=== PATIENT | female | born 1975 | race Caucasian/White ===

== ENCOUNTER 2016-11-27 10:40 | Emergency (ER) | payer OTHER ==
[~2016-11-27] VITALS: Ht 172.7 cm; Wt 79.0 kg
[~2016-11-27 10:40] MED LIST: ANTIBIOTICS; VICODIN
[2016-11-27 10:59] VITALS: Ht 172.7 cm; Wt 79.0 kg
[2016-11-27] MEDS ORDERED: ONDANSETRON 4 MG INJ IV STA (11:30)
[2016-11-27] MEDS ORDERED: SOD CHLORIDE 0.9% 1,000 ML IV STA (11:30)
[2016-11-27] MEDS ORDERED: KETOROLAC 30 MG INJ IV STA (11:30)
[2016-11-27 12:00] LABS: ADD UMIC YES; URINE BILIRUBIN (Dip) NEGATIVE (NEGATIVE); URINE BLOOD (Dip) 3+ (NEGATIVE); URINE COLOR LT. YELLOW (YELLOW); URINE GLUCOSE (Dip) NEGATIVE (NEGATIVE); URINE KETONES (Dip) NEGATIVE (NEGATIVE); URINE LEUKOCYTE ESTERASE (Dip) TRACE (NEGATIVE); URINE NITRITE (Dip) NEGATIVE (NEGATIVE); URINE TOTAL PROTEIN (Dip) 2+ (NEGATIVE); URINE UROBILINOGEN (Dip) 0.2 E.U./dL (0.1-1.0)
[2016-11-27 12:16] LABS: BACTERIA,URINE FEW; SQUAMOUS EPITHELIAL CELL,UR MODERATE
[2016-11-27 12:29] LABS: ADD SCAN DIFF NO
[2016-11-27 12:40] LABS: ALBUMIN 4.2 g/dl (3.3-4.9); POTASSIUM 3.8 mmol/L (3.5-5.1)
[2016-11-27 12:42] LABS: BILIRUBIN,INDIRECT 0.3 mg/dl (0-1.1); BILIRUBIN,TOTAL 0.3 mg/dl (0.2-1.3); CREATININE 0.72 mg/dl (0.44-1.00)
[2016-11-27 12:43] LABS: ALBUMIN/GLOBULIN RATIO 1.44; TOTAL PROTEIN 7.1 g/dl (6.1-8.1)
[2016-11-27 12:54] LABS: BASOPHILS % 0.6 % (0.0-2.0); EOSINOPHILS # 0.1 10^3/ul (0.0-0.5); EOSINOPHILS % 1.9 % (0.0-7.0); HEMATOCRIT 39.9 % (37.0-47.0); HEMOGLOBIN 13.3 g/dl (12.0-16.0); LYMPHOCYTES % 29.3 % (15.0-51.0); MEAN CORPUSCULAR HEMOGLOBIN 30.2 pg (29.0-33.0); MEAN CORPUSCULAR HGB CONC 33.3 g/dl (32.0-37.0); MEAN CORPUSCULAR VOLUME 90.7 fl (82.0-101.0); MEAN PLATELET VOLUME 11.1 fl (7.4-10.4); MONOCYTE # 0.4 10^3/ul (0.3-0.9); MONOCYTES % 5.5 % (0.0-11.0); NEUTROPHIL # 4.3 10^3/ul (1.6-7.5); NEUTROPHILS % 62.4 % (39.0-77.0); PLATELET COUNT 251 10^3/UL (140-415); RED CELL DISTRIBUTION WIDTH 12.5 % (11.5-14.5); WHITE BLOOD COUNT 6.9 10^3/ul (4.8-10.8)
--- NOTE | 2016-11-27 13:38 | ERD ---
ER Documentation Chief Complaint Date/Time DATE: 11/27/16 TIME: 13:38 Chief Complaint Pt with dysuria and B flank pain x 3 days, worst sice last night. HPI 41-year-old female presenting with complaints of bilateral flank pain for about 3 days. She has had associated dysuria but no hematuria. She has felt nauseated without vomiting. She states the pain is worse on the left than the right. Described as aching, sometimes stabbing, constant, nonradiating, 7 out of 10. Movement makes it worse, laying down makes it feel better. She has had some associated constipation for the past 2 days. She has not been taking anything for the pain. No vaginal bleeding or discharge. ROS All systems reviewed and are negative except as per history of present illness. Medications Home Meds Reported Medications [Antibiotics] No Conflict Check 04/12/10 [Vicodin] No Conflict Check 04/12/10 [None] No Conflict Check 04/10/10 Allergies Allergies: Coded Allergies: No Known Drug Allergies (Verified Allergy, Mild, 04/12/10) PMhx/Soc History of Surgery: Yes (tubal ligation, 03/2006) Anesthesia Reaction: No Hx Neurological Disorder: No Hx Respiratory Disorders: No Hx Cardiac Disorders: No Hx Psychiatric Problems: Yes (HX OF DEPRESSION AND ANXIETY) Hx Miscellaneous Medical Probl: No Hx Alcohol Use: Yes (occasional) Hx Substance Use: No Hx Tobacco Use: Yes Smoking Status: Current some day smoker FmHx Family History: No diabetes Physical Exam Vitals Vital Signs Date Time Temp Pulse Resp B/P Pulse Ox O2 Delivery O2 Flow Rate FiO2 11/27/16 10:59 98.3 81 18 114/72 99 Physical Exam Const: Well-appearing, well-nourished, wearing sunglasses, nontoxic, no distress Head: Atraumatic Eyes: Normal Conjunctiva, PERRLA ENT: Dry mucous membranes, oropharynx normal Neck: Full range of motion..~ No meningismus. Resp: Clear to auscultation bilaterally Cardio: Regular rate and rhythm, no murmurs Abd: Soft, mild left upper quadrant tenderness to palpation, non distended. No rebound or guarding. Normal bowel sounds Skin: No petechiae or rashes Back: Mild bilateral CVA tenderness, left greater than right. No midline tenderness to palpation. No ecchymoses. Ext: No cyanosis, or edema Neur: Awake and alert and oriented 3, moving all extremities Psych: Flat mood and Affect Result Diagram: 11/27/16 1200 11/27/16 1200 Results 24 hrs Laboratory Tests Test 11/27/16 11:51 11/27/16 12:00 Urine Color LT. YELLOW Urine Clarity CLEAR Urine pH 7.5 Urine Specific [place] >=1.030 Urine Ketones NEGATIVE Urine Nitrite NEGATIVE Urine Bilirubin NEGATIVE Urine Urobilinogen 0.2 E.U./dL Urine Leukocyte Esterase TRACE Urine Microscopic RBC 10-25/HPF Urine Microscopic WBC 2-5/HPF Urine Squamous Epithelial Cells MODERATE Urine Amorphous Phosphates MODERATE Urine Bacteria FEW Urine Hemoglobin 3+ Urine Glucose NEGATIVE% Urine Total Protein 2+ White Blood Count 6.910^3/ul Red Blood Count 4.4010^6/ul Hemoglobin 13.3g/dl Hematocrit 39.9% Mean Corpuscular Volume 90.7fl Mean Corpuscular Hemoglobin 30.2pg Mean Corpuscular Hemoglobin Concent 33.3g/dl Red Cell Distribution Width 12.5% Platelet Count 06947^3/UL Mean Platelet Volume 11.1fl Neutrophils % 62.4% Lymphocytes % 29.3% Monocytes % 5.5% Eosinophils % 1.9% Basophils % 0.6% Nucleated Red Blood Cells % 0.0/100WBC Neutrophils # 4.310^3/ul Lymphocytes # 2.010^3/ul Monocytes # 0.410^3/ul Eosinophils # 0.110^3/ul Basophils # 0.010^3/ul Nucleated Red Blood Cells # 0.010^3/ul Sodium Level 142mmol/L Potassium Level 3.8mmol/L Chloride Level 102mmol/L Carbon Dioxide Level 29mmol/L Anion Gap 15 Blood Urea Nitrogen 11mg/dl Creatinine 0.72mg/dl Glucose Level 80mg/dl Calcium Level 9.0mg/dl Total Bilirubin 0.3mg/dl Direct Bilirubin 0.00mg/dl Indirect Bilirubin 0.3mg/dl Aspartate Amino Transf (AST/SGOT) 16IU/L Alanine Aminotransferase (ALT/SGPT) 25IU/L Alkaline Phosphatase 69IU/L Total Protein 7.1g/dl Albumin 4.2g/dl Globulin 2.90g/dl Albumin/Globulin Ratio 1.44 Lipase 44U/L Current Medications Medications (Trade) Dose Ordered Sig/Janette Route PRN Reason Start Time Stop Time Status Last Admin Dose Admin Sodium Chloride (NS) 1,000 ml @ 1,000 mls/hr Q1H STAT IV 11/27/16 11:30 11/27/16 12:29 DC 11/27/16 11:59 Ondansetron HCl (Zofran Inj) 4 mg ONCE STAT IV 11/27/16 11:30 11/27/16 11:33 DC 11/27/16 11:59 Ketorolac Tromethamine (Toradol) 30 mg ONCE STAT IV 11/27/16 11:30 11/27/16 11:33 DC 11/27/16 11:59 Procedures/MDM Patient is presenting with complaints of flank pain with associated dysuria and nausea. Vitals are unremarkable and she is afebrile. Patient was started on IV fluids and medications for her symptoms. Diagnoses considered were AAA, renal artery or vein thromoembolism, aortic dissection, pyelonephritis, retroperitoneal hemorrhage, ureterolithiasis, pancreatitis, colitis, gynecologic pathologies, as well as spinal emergencies, among others. I doubt a spinal emergency at this time. Urinalysis did not show evidence of UTI but did show RBCs. Patient states that she is due to start her period today. Her [id number] test was negative. CBC and CMP were also within normal limits. A CT of the abdomen and pelvis was ordered to evaluate for any retroperitoneal abnormalities or intra-abdominal abnormalities. Prior to the scan, the nurse told me that the patient had eloped and pulled out her IV improvement on the ground prior to eloping. She did not tell anyone she was leaving. Disposition: Eloped Departure Diagnosis: Primary Impression: Flank pain Additional Impression: Nausea Condition: MARNIE Irizarry MD November 27, 2016 13:38
== END 2016-11-27 13:39 | disposition left against medical advice (07) ==
LOC: FTE 10:40
DX: R10.12 Left upper quadrant pain (principal); R11.0 Nausea; F17.210 Nicotine dependence, cigarettes, uncomplicated
CPT/HCPCS: 36415; 80053; 81001; 83690; 85025; 87086; 96374; 96375; J1885; J2405; J7030; Z7502; 81003

== ENCOUNTER 2019-03-29 15:12 | Emergency (ER) | payer SELFPAY ==
[~2019-03-29] VITALS: Wt 80.0 kg
[2019-03-29 15:15] VITALS: BP 120/59; PULSE 59; RESP 18
== END 2019-03-29 16:36 | disposition left against medical advice (07) ==
LOC: FTE 15:12
DX: Z53.21 Procedure and treatment not carried out due to patient leaving prior to being seen by health care provider (principal)

== ENCOUNTER 2019-06-05 17:55 | Emergency (ER) | payer OTHER ==
[~2019-06-05] VITALS: Ht 175.3 cm; Wt 75.0 kg
[~2019-06-05 17:55] MED LIST changes: +CEPH-443 PO
[2019-06-05 17:58] VITALS: Ht 175.3 cm; Wt 75.0 kg
[2019-06-05 18:33] VITALS: BP 130/81; PULSE 82; RESP 17
[2019-06-05] MEDS ORDERED: CEFTRIAXONE 1 GM/50 ML (PMX) 50 ML IVPB ONE (19:30)
== END 2019-06-05 20:40 | disposition home or self-care (01) ==
LOC: E/R 17:55
DX: N12 Tubulo-interstitial nephritis, not specified as acute or chronic (principal); F17.210 Nicotine dependence, cigarettes, uncomplicated; L53.9 Erythematous condition, unspecified
CPT/HCPCS: 81001; 84703; J0696; Z7502; 99283